=== PATIENT | male | born 1945 | race Caucasian/White ===

== ENCOUNTER 2021-11-25 15:26 | Emergency (ER) | payer BC, MEDICARE ==
[2021-11-25] MEDS ORDERED: Aspirin 81 MG Tab.Chew PO ONE (16:20)
[2021-11-25 16:44] LABS: ESTIMATED GFR 47 mL/min (>60)
== END 2021-11-25 17:05 | disposition home or self-care (01) ==
LOC: FB.ED 15:26
DX: R20.0 Anesthesia of skin (principal); E78.00 Pure hypercholesterolemia, unspecified; I10 Essential (primary) hypertension; I25.2 Old myocardial infarction; E11.9 Type 2 diabetes mellitus without complications; Z87.891 Personal history of nicotine dependence
CPT/HCPCS: 36415; 82565; 99283; 99284; A9270-GY

== ENCOUNTER 2023-04-26 09:47 | Emergency (ER) | payer MEDICARE, OTHER ==
[2023-04-26] MEDS ORDERED: Sodium Chloride 0.9% 10 ML Syringe FLUSH PRN (09:53)
[2023-04-26 10:35] LABS: BASOPHILS PERCENT AUTO 0.5 % (0.3-3.8); EOSINOPHILS ABSOLUTE AUTO 0.1 x10-3/uL (0.0-0.6); EOSINOPHILS PERCENT AUTO 3.2 % (0.1-6.8); HEMATOCRIT 30.8 % (38.3-50.1); HEMOGLOBIN 10.4 g/dL (12.9-17.7); LYMPHOCYTES ABSOLUTE AUTO 0.7 x10-3/uL (0.5-4.5); LYMPHOCYTES PERCENT AUTO 18.2 % (15.8-45.3); MEAN CORPUSCULAR HEMOGLOBIN 35.2 pg (27.0-33.3); MEAN CORPUSCULAR HGB CONC 33.7 g/dL (28.7-35.3); MEAN CORPUSCULAR VOLUME 104.4 fL (80.8-98.7); MEAN PLATELET VOLUME 8.3 fL (6.7-11.0); MONOCYTES ABSOLUTE AUTO 0.2 x10-3/uL (0.0-1.2); MONOCYTES PERCENT AUTO 4.6 % (5.5-15.2); NEUTROPHILS PERCENT AUTO 73.5 % (40.3-71.8); PLATELET COUNT,PLT 145 x10(3)uL (117-477); RED CELL DISTRIBUTION WIDTH 14.6 % (12.4-15.0)
[2023-04-26 10:37] LABS: BLOOD UREA NITROGEN,BUN 18 mg/dL (7-18); BUN/CREATININE RATIO 13.8 (9-20); CALCIUM 8.8 mg/dL (8.6-10.2); CARBON DIOXIDE,CO2 29 mmol/L (21-32); CHLORIDE,CL 106 mmol/L (100-110); CREATININE 1.3 mg/dL (0.70-1.30); ESTIMATED GFR 56 mL/min (>60); GLUCOSE RANDOM 111 mg/dL (80-116); POTASSIUM,K 4.4 mmol/L (3.5-5.3); SODIUM,NA 140 mmol/L (135-145)
[2023-04-26 10:43] LABS: ALANINE AMINOTRANSFERASE,ALT 22 U/L (12-36); ALBUMIN 3.4 g/dL (3.2-4.6); ALKALINE PHOSPHATASE 77 IU/L (56-112); ASPARTATE AMNIOTRANSFERASE,AST 14 IU/L (5-25); BILIRUBIN TOTAL 1.5 mg/dL (0.1-1.3); PROTEIN TOTAL,TP 6.9 g/dL (6.0-8.0)
[2023-04-26 10:44] LABS: INR 1.04 (1.00-1.24); LACTIC ACID 1.2 mmol/L (0.4-2.0); PROTHROMBIN TIME 10.7 sec (9.0-11.1); PTT,PARTIAL THROMBOPLSTIN TIME 28.1 SECONDS (24.4-33.2)
[2023-04-26 10:46] LABS: RED BLOOD CELL COUNT 2.95 x10(6)uL (3.90-5.90)
[2023-04-26 10:49] LABS: TROPONIN I 47.3 pg/mL (4.0-60.3); TSH ULTRASENSITIVE 1.2 IU/mL (0.36-3.74)
[2023-04-26 13:12] LABS: INFLUENZA A NAA NEGATIVE (NEGATIVE); INFLUENZA B NAA NEGATIVE (NEGATIVE); RESPIRATORY SYNCYTIAL VIR NAA NEGATIVE (NEGATIVE)
[2023-04-26 13:13] LABS: CORONAVIRUS COVID-19 NAA NEGATIVE (NEGATIVE)
[2023-04-26 14:41] VITALS: BP 165/83; PULSE 112
== END 2023-04-26 12:30 | disposition home or self-care (01) ==
LOC: FB.ED 09:47
DX: I48.20 Chronic atrial fibrillation, unspecified (principal); D64.9 Anemia, unspecified; F41.1 Generalized anxiety disorder; I50.9 Heart failure, unspecified; I11.0 Hypertensive heart disease with heart failure; E11.9 Type 2 diabetes mellitus without complications; E78.00 Pure hypercholesterolemia, unspecified; Z79.02 Long term (current) use of antithrombotics/antiplatelets; Z79.899 Other long term (current) drug therapy
CPT/HCPCS: 0241U; 36415; 71045; 80053; 83605; 83880; 84443; 84484; 85025; 85610; 85730; 86140; 87040; 93005; 99285; 93010; 99284

== ENCOUNTER 2024-05-16 14:35 | Emergency (ER) | payer MEDICARE, OTHER ==
[2024-05-16] MEDS ORDERED: Sodium Chloride 0.9% 10 ML Syringe FLUSH PRN (15:16)
[2024-05-16] MEDS: Sodium Chloride 0.9% 1,000 ML IV ONE ×2 (15:52→17:43)
[2024-05-16 16:05] LABS: HEMATOCRIT 33.3 % (38.3-50.1); HEMOGLOBIN 11.4 g/dL (12.9-17.7); MEAN CORPUSCULAR HEMOGLOBIN 37.1 pg (27.0-33.3); MEAN CORPUSCULAR HGB CONC 34.3 g/dL (28.7-35.3); MEAN CORPUSCULAR VOLUME 108.3 fL (80.8-98.7); MEAN PLATELET VOLUME 9.8 fL (6.7-11.0); RED BLOOD CELL COUNT 3.08 x10(6)uL (3.90-5.90); RED CELL DISTRIBUTION WIDTH 14.4 % (12.4-15.0)
[2024-05-16 16:29] LABS: A/G RATIO 1.1; ALANINE AMINOTRANSFERASE,ALT 35 U/L (12-36); ALKALINE PHOSPHATASE 64 IU/L (56-112); ASPARTATE AMNIOTRANSFERASE,AST 29 IU/L (5-25); BILIRUBIN TOTAL 1.6 mg/dL (0.1-1.3); CALCIUM 8.8 mg/dL (8.6-10.2); CARBON DIOXIDE,CO2 20 mmol/L (21-32); CHLORIDE,CL 97 mmol/L (100-110); EST CRCL DRUG DOSING (CG) 11.55 mL/min; ESTIMATED GFR 11 mL/min (>60); GLUCOSE RANDOM 128 mg/dL (80-116); POTASSIUM,K 4.5 mmol/L (3.5-5.3); PROTEIN TOTAL,TP 7.6 g/dL (6.0-8.0); SODIUM,NA 134 mmol/L (135-145); WHITE BLOOD CELL COUNT,WBC 1.8 x10-3/uL (3.2-10.1)
[2024-05-16 16:32] LABS: BLOOD UREA NITROGEN,BUN 112 mg/dL (7-18); CREATININE 5.1 mg/dL (0.70-1.30)
[2024-05-16 16:33] LABS: LACTIC ACID 2.4 mmol/L (0.4-2.0)
[2024-05-16 16:42] LABS: C-REACTIVE PROTEIN 5.79 mg/dL (<0.50)
[2024-05-16 17:00] LABS: INFLUENZA A NAA NEGATIVE (NEGATIVE); INFLUENZA B NAA NEGATIVE (NEGATIVE); RESPIRATORY SYNCYTIAL VIR NAA NEGATIVE (NEGATIVE)
[2024-05-16 17:05] LABS: CORONAVIRUS COVID-19 NAA NEGATIVE (NEGATIVE)
[2024-05-16 17:28] LABS: BAND PERCENT MAN 8 % (0-6); LYMPHOCYTES PERCENT MAN 22 % (13-37); MONOCYTES PERCENT MAN 10 % (4-12); PLATELET COUNT,PLT 59 x10(3)uL (117-477); SEG NEUTROPHILS PERCENT MAN 60 % (46-82)
== END 2024-05-16 18:48 ==
LOC: FB.ED 14:35
DX: I11.0 Hypertensive heart disease with heart failure (principal); I50.22 Chronic systolic (congestive) heart failure; D61.818 Other pancytopenia; N17.9 Acute kidney failure, unspecified; I25.2 Old myocardial infarction; E78.00 Pure hypercholesterolemia, unspecified; E11.9 Type 2 diabetes mellitus without complications; Z87.891 Personal history of nicotine dependence; Z90.89 Acquired absence of other organs; Z79.51 Long term (current) use of inhaled steroids; Z79.899 Other long term (current) drug therapy
CPT/HCPCS: 0241U; 71046; 80053; 83605; 83880; 85025; 86140; 93005; 96360; 96361; 99285; J7030

== ENCOUNTER 2024-05-27 08:06 | Inpatient (IN) | payer MEDICARE, OTHER ==
[2024-05-27] MEDS ORDERED: Ampicillin 2 GM Vial IV SCH (15:15)
[2024-05-27] MEDS ORDERED: Acetaminophen 325 MG Tab PO PRN (15:29)
[2024-05-27] MEDS ORDERED: Melatonin 3 MG Tab PO PRN (15:29)
[2024-05-27] MEDS ORDERED: Polyethylene Glycol 3350 Powder 17 GM Packet PO PRN (15:29)
[2024-05-27] MEDS: Ampicillin 2 GM in Sodium Chloride 0.9% 100 ML IV SCH (16:18)
[2024-05-27] MEDS: Sodium Chloride 0.9% 10 ML Syringe FLUSH PRN (16:19)
[2024-05-27] MEDS: Albuterol/Ipratropium 3.0-0.5 MG/3 ML Neb Soln INH SCH (22:11)
[2024-05-27] MEDS: cefTRIAXone 2 GM Vial IVPUSH SCH (22:35)
[2024-05-28 06:42] LABS: HEMATOCRIT 25.6 % (38.3-50.1); HEMOGLOBIN 8.6 g/dL (12.9-17.7); MEAN CORPUSCULAR HGB CONC 33.5 g/dL (28.7-35.3); MEAN CORPUSCULAR VOLUME 107.3 fL (80.8-98.7); MEAN PLATELET VOLUME 9.3 fL (6.7-11.0); PLATELET COUNT,PLT 101 x10(3)uL (117-477); RED BLOOD CELL COUNT 2.38 x10(6)uL (3.90-5.90); RED CELL DISTRIBUTION WIDTH 14.8 % (12.4-15.0); WHITE BLOOD CELL COUNT,WBC 2.4 x10-3/uL (3.2-10.1)
[2024-05-28 06:51] LABS: BLOOD UREA NITROGEN,BUN 14 mg/dL (7-18); CALCIUM 8.3 mg/dL (8.6-10.2); CARBON DIOXIDE,CO2 28 mmol/L (21-32); CHLORIDE,CL 107 mmol/L (100-110); CREATININE 1.4 mg/dL (0.70-1.30); EST CRCL DRUG DOSING (CG) 42.77 mL/min; ESTIMATED GFR 51 mL/min (>60); GLUCOSE RANDOM 95 mg/dL (80-116); POTASSIUM,K 3.6 mmol/L (3.5-5.3); SODIUM,NA 145 mmol/L (135-145)
[2024-05-28 07:03] LABS: BAND PERCENT MAN 5 % (0-6); BASOPHILS PERCENT MAN 1 % (0-2); EOSINOPHILS PERCENT MAN 1 % (0-5); LYMPHOCYTES PERCENT MAN 30 % (13-37); MONOCYTES PERCENT MAN 6 % (4-12); SEG NEUTROPHILS PERCENT MAN 57 % (46-82)
[2024-05-28] MEDS: Furosemide 40 MG Tab PO SCH (08:19)
[2024-05-28] MEDS: Spironolactone 25 MG Tab PO SCH (08:19)
[2024-05-28] MEDS: Metoprolol Succinate 50 MG Tab.ER PO SCH (08:20)
[2024-05-28] MEDS: Rosuvastatin 20 MG Tab PO SCH (08:20)
[2024-05-28] MEDS: Clopidogrel 75 MG Tab PO SCH (08:20)
[2024-05-28] MEDS: Cyanocobalamin (Vitamin B12) 1,000 MCG Tab PO SCH (08:20)
[2024-05-28] MEDS: Lisinopril 5 MG Tab PO SCH (08:20)
[2024-05-29] MEDS: Albuterol 6.7 GM Inhaler INH PRN (00:41)
[2024-05-31] MEDS ORDERED: FLU (Fluad Triv) TS24-25 (65UP)/MF59C/PF 45 MCG/0.5 ML Syringe IM ONE (10:00)
[2024-06-04 06:28] LABS: HEMATOCRIT 23.1 % (38.3-50.1); HEMOGLOBIN 7.6 g/dL (12.9-17.7); MEAN CORPUSCULAR HEMOGLOBIN 35.4 pg (27.0-33.3); MEAN CORPUSCULAR HGB CONC 33.1 g/dL (28.7-35.3); MEAN PLATELET VOLUME 9.1 fL (6.7-11.0); PLATELET COUNT,PLT 94 x10(3)uL (117-477); RED BLOOD CELL COUNT 2.16 x10(6)uL (3.90-5.90); RED CELL DISTRIBUTION WIDTH 15.1 % (12.4-15.0)
[2024-06-04 06:33] LABS: WHITE BLOOD CELL COUNT,WBC 1.4 x10-3/uL (3.2-10.1)
[2024-06-04 06:38] LABS: A/G RATIO 0.9; ALANINE AMINOTRANSFERASE,ALT 24 U/L (12-36); ALBUMIN 2.7 g/dL (3.2-4.6); ALKALINE PHOSPHATASE 83 IU/L (56-112); ASPARTATE AMNIOTRANSFERASE,AST 18 IU/L (5-25); BILIRUBIN TOTAL 0.7 mg/dL (0.1-1.3); BLOOD UREA NITROGEN,BUN 14 mg/dL (7-18); BUN/CREATININE RATIO 9.3 (9-20); CALCIUM 8.7 mg/dL (8.6-10.2); CARBON DIOXIDE,CO2 33 mmol/L (21-32); CHLORIDE,CL 105 mmol/L (100-110); CREATININE 1.5 mg/dL (0.70-1.30); EST CRCL DRUG DOSING (CG) 39.92 mL/min; ESTIMATED GFR 47 mL/min (>60); GLUCOSE RANDOM 90 mg/dL (80-116); POTASSIUM,K 4.3 mmol/L (3.5-5.3); PROTEIN TOTAL,TP 5.7 g/dL (6.0-8.0); SODIUM,NA 143 mmol/L (135-145)
[2024-06-04 06:56] LABS: EOSINOPHILS PERCENT MAN 10 % (0-5); LYMPHOCYTES PERCENT MAN 47 % (13-37); MONOCYTES PERCENT MAN 5 % (4-12); SEG NEUTROPHILS PERCENT MAN 38 % (46-82)
[2024-06-04 13:15] LABS: HEMATOCRIT 25.8 % (38.3-50.1); HEMOGLOBIN 8.6 g/dL (12.9-17.7); MEAN CORPUSCULAR HEMOGLOBIN 35.8 pg (27.0-33.3); MEAN CORPUSCULAR HGB CONC 33.3 g/dL (28.7-35.3); MEAN CORPUSCULAR VOLUME 107.6 fL (80.8-98.7); MEAN PLATELET VOLUME 8.8 fL (6.7-11.0); PLATELET COUNT,PLT 106 x10(3)uL (117-477); RED CELL DISTRIBUTION WIDTH 15.2 % (12.4-15.0)
[2024-06-04 13:16] LABS: WHITE BLOOD CELL COUNT,WBC 1.4 x10-3/uL (3.2-10.1)
[2024-06-04 13:27] LABS: EOSINOPHILS PERCENT MAN 7 % (0-5); LYMPHOCYTES PERCENT MAN 45 % (13-37); MONOCYTES PERCENT MAN 6 % (4-12); SEG NEUTROPHILS PERCENT MAN 42 % (46-82)
[2024-06-06 06:19] LABS: HEMATOCRIT 23.2 % (38.3-50.1); HEMOGLOBIN 7.7 g/dL (12.9-17.7); MEAN CORPUSCULAR HEMOGLOBIN 35.7 pg (27.0-33.3); MEAN CORPUSCULAR HGB CONC 33.1 g/dL (28.7-35.3); MEAN PLATELET VOLUME 8.7 fL (6.7-11.0); PLATELET COUNT,PLT 105 x10(3)uL (117-477); RED BLOOD CELL COUNT 2.15 x10(6)uL (3.90-5.90); RED CELL DISTRIBUTION WIDTH 15.1 % (12.4-15.0)
[2024-06-06 06:46] LABS: WHITE BLOOD CELL COUNT,WBC 1.4 x10-3/uL (3.2-10.1)
[2024-06-06 07:59] LABS: EOSINOPHILS PERCENT MAN 2 % (0-5); LYMPHOCYTES PERCENT MAN 47 % (13-37); MONOCYTES PERCENT MAN 10 % (4-12); SEG NEUTROPHILS PERCENT MAN 41 % (46-82)
[2024-06-06 08:00] LABS: ANISOCYTOSIS FEW
[2024-06-08 06:50] LABS: HEMATOCRIT 25.3 % (38.3-50.1); HEMOGLOBIN 8.4 g/dL (12.9-17.7); MEAN CORPUSCULAR HEMOGLOBIN 36.1 pg (27.0-33.3); MEAN CORPUSCULAR HGB CONC 33.4 g/dL (28.7-35.3); MEAN PLATELET VOLUME 8.5 fL (6.7-11.0); PLATELET COUNT,PLT 129 x10(3)uL (117-477); RED BLOOD CELL COUNT 2.34 x10(6)uL (3.90-5.90); RED CELL DISTRIBUTION WIDTH 15.3 % (12.4-15.0)
[2024-06-08 07:02] LABS: WHITE BLOOD CELL COUNT,WBC 1.6 x10-3/uL (3.2-10.1)
[2024-06-08 07:41] LABS: BAND PERCENT MAN 2 % (0-6); EOSINOPHILS PERCENT MAN 6 % (0-5); LYMPHOCYTES PERCENT MAN 44 % (13-37); MONOCYTES PERCENT MAN 6 % (4-12); SEG NEUTROPHILS PERCENT MAN 42 % (46-82)
[2024-06-08 07:43] LABS: ANISOCYTOSIS FEW
[2024-06-08 07:44] LABS: OVALOCYTES FEW
[2024-06-08 07:45] LABS: POIKILOCYTOSIS FEW
[2024-06-10 06:43] LABS: HEMATOCRIT 25.8 % (38.3-50.1); HEMOGLOBIN 8.6 g/dL (12.9-17.7); MEAN CORPUSCULAR HEMOGLOBIN 36.3 pg (27.0-33.3); MEAN CORPUSCULAR HGB CONC 33.3 g/dL (28.7-35.3); MEAN PLATELET VOLUME 8.3 fL (6.7-11.0); PLATELET COUNT,PLT 147 x10(3)uL (117-477); RED BLOOD CELL COUNT 2.36 x10(6)uL (3.90-5.90); RED CELL DISTRIBUTION WIDTH 15.5 % (12.4-15.0)
[2024-06-10 06:54] LABS: WHITE BLOOD CELL COUNT,WBC 1.7 x10-3/uL (3.2-10.1)
[2024-06-10 07:09] LABS: ANISOCYTOSIS FEW; BAND PERCENT MAN 4 % (0-6); EOSINOPHILS PERCENT MAN 9 % (0-5); LYMPHOCYTES PERCENT MAN 34 % (13-37); MONOCYTES PERCENT MAN 8 % (4-12); OVALOCYTES FEW; POIKILOCYTOSIS FEW; SEG NEUTROPHILS PERCENT MAN 45 % (46-82)
[2024-06-10] MEDS: Saccharomyces Boulardii (Probiotic) 250 MG Cap PO SCH (10:00)
[2024-06-12 06:24] LABS: HEMATOCRIT 23.1 % (38.3-50.1); HEMOGLOBIN 7.8 g/dL (12.9-17.7); MEAN CORPUSCULAR HEMOGLOBIN 36.9 pg (27.0-33.3); MEAN CORPUSCULAR HGB CONC 33.7 g/dL (28.7-35.3); MEAN CORPUSCULAR VOLUME 109.7 fL (80.8-98.7); MEAN PLATELET VOLUME 8.1 fL (6.7-11.0); PLATELET COUNT,PLT 126 x10(3)uL (117-477); RED BLOOD CELL COUNT 2.11 x10(6)uL (3.90-5.90); RED CELL DISTRIBUTION WIDTH 14.8 % (12.4-15.0)
[2024-06-12 06:29] LABS: WHITE BLOOD CELL COUNT,WBC 1.8 x10-3/uL (3.2-10.1)
[2024-06-12 06:34] LABS: CREATININE 1.5 mg/dL (0.70-1.30); EST CRCL DRUG DOSING (CG) 39.92 mL/min
[2024-06-12 07:30] LABS: EOSINOPHILS PERCENT MAN 10 % (0-5); LYMPHOCYTES PERCENT MAN 42 % (13-37); MONOCYTES PERCENT MAN 12 % (4-12); SEG NEUTROPHILS PERCENT MAN 36 % (46-82)
[2024-06-12 07:46] LABS: TEARDROP CELLS FEW
[2024-06-12 07:47] LABS: POIKILOCYTOSIS FEW
[2024-06-12 07:48] LABS: ANISOCYTOSIS MODERATE
[2024-06-15 07:04] LABS: HEMATOCRIT 24.8 % (38.3-50.1); HEMOGLOBIN 8.2 g/dL (12.9-17.7); MEAN CORPUSCULAR HEMOGLOBIN 36.4 pg (27.0-33.3); MEAN CORPUSCULAR HGB CONC 32.9 g/dL (28.7-35.3); MEAN CORPUSCULAR VOLUME 110.6 fL (80.8-98.7); MEAN PLATELET VOLUME 8.1 fL (6.7-11.0); PLATELET COUNT,PLT 134 x10(3)uL (117-477); RED BLOOD CELL COUNT 2.24 x10(6)uL (3.90-5.90); RED CELL DISTRIBUTION WIDTH 14.7 % (12.4-15.0)
[2024-06-15 07:19] LABS: WHITE BLOOD CELL COUNT,WBC 1.8 x10-3/uL (3.2-10.1)
[2024-06-15 07:35] LABS: EOSINOPHILS PERCENT MAN 6 % (0-5); LYMPHOCYTES PERCENT MAN 38 % (13-37); MONOCYTES PERCENT MAN 4 % (4-12); SEG NEUTROPHILS PERCENT MAN 52 % (46-82)
[2024-06-15 07:41] LABS: ANISOCYTOSIS FEW; OVALOCYTES FEW; POIKILOCYTOSIS FEW
[2024-06-17] MEDS ORDERED: Carboxymethylcellulose Sodium 0.5% Ophth Soln 15 ML Bottle EYEBOTH PRN (08:53)
[2024-06-19 06:41] LABS: HEMATOCRIT 28.4 % (38.3-50.1); HEMOGLOBIN 8.5 g/dL (12.9-17.7); MEAN CORPUSCULAR HEMOGLOBIN 32.8 pg (27.0-33.3); MEAN CORPUSCULAR HGB CONC 29.9 g/dL (28.7-35.3); MEAN CORPUSCULAR VOLUME 109.5 fL (80.8-98.7); MEAN PLATELET VOLUME 8.2 fL (6.7-11.0); PLATELET COUNT,PLT 134 x10(3)uL (117-477); RED BLOOD CELL COUNT 2.59 x10(6)uL (3.90-5.90); RED CELL DISTRIBUTION WIDTH 14.7 % (12.4-15.0); WHITE BLOOD CELL COUNT,WBC 2.2 x10-3/uL (3.2-10.1)
[2024-06-19 06:55] LABS: CREATININE 1.5 mg/dL (0.70-1.30); EST CRCL DRUG DOSING (CG) 39.92 mL/min
[2024-06-19 07:42] LABS: EOSINOPHILS PERCENT MAN 8 % (0-5); LYMPHOCYTES PERCENT MAN 34 % (13-37); MONOCYTES PERCENT MAN 10 % (4-12); POIKILOCYTOSIS FEW; SEG NEUTROPHILS PERCENT MAN 48 % (46-82)
[2024-06-19 07:43] LABS: OVALOCYTES FEW
[2024-06-24 06:35] LABS: HEMATOCRIT 26.8 % (38.3-50.1); MEAN CORPUSCULAR HEMOGLOBIN 35.9 pg (27.0-33.3); MEAN CORPUSCULAR HGB CONC 33.5 g/dL (28.7-35.3); MEAN CORPUSCULAR VOLUME 107.3 fL (80.8-98.7); MEAN PLATELET VOLUME 8.4 fL (6.7-11.0); PLATELET COUNT,PLT 100 x10(3)uL (117-477); RED BLOOD CELL COUNT 2.49 x10(6)uL (3.90-5.90); RED CELL DISTRIBUTION WIDTH 15.7 % (12.4-15.0)
[2024-06-24 06:41] LABS: WHITE BLOOD CELL COUNT,WBC 1.9 x10-3/uL (3.2-10.1)
[2024-06-24 06:54] LABS: EOSINOPHILS PERCENT MAN 7 % (0-5); LYMPHOCYTES PERCENT MAN 37 % (13-37); MONOCYTES PERCENT MAN 10 % (4-12); SEG NEUTROPHILS PERCENT MAN 44 % (46-82)
[2024-06-24 06:55] LABS: BASOPHILS PERCENT MAN 2 % (0-2); OVALOCYTES FEW; POIKILOCYTOSIS FEW
[2024-06-26 06:47] LABS: HEMATOCRIT 26.2 % (38.3-50.1); HEMOGLOBIN 8.8 g/dL (12.9-17.7); MEAN CORPUSCULAR HEMOGLOBIN 35.8 pg (27.0-33.3); MEAN CORPUSCULAR HGB CONC 33.7 g/dL (28.7-35.3); MEAN CORPUSCULAR VOLUME 106.4 fL (80.8-98.7); MEAN PLATELET VOLUME 8.8 fL (6.7-11.0); PLATELET COUNT,PLT 102 x10(3)uL (117-477); RED BLOOD CELL COUNT 2.47 x10(6)uL (3.90-5.90); RED CELL DISTRIBUTION WIDTH 15.2 % (12.4-15.0)
[2024-06-26 06:52] LABS: EST CRCL DRUG DOSING (CG) 39.92 mL/min
[2024-06-26 07:25] LABS: EOSINOPHILS PERCENT MAN 9 % (0-5); LYMPHOCYTES PERCENT MAN 29 % (13-37); MONOCYTES PERCENT MAN 10 % (4-12); POIKILOCYTOSIS FEW; SEG NEUTROPHILS PERCENT MAN 52 % (46-82)
[2024-06-26 07:35] LABS: CREATININE 1.5 mg/dL (0.70-1.30)
[2024-06-29] MEDS: FLU (Fluad Triv) TS24-25 (65UP)/MF59C/PF 45 MCG/0.5 ML Syringe IM ONE (11:20)
== END 2024-06-29 16:05 | disposition home or self-care (01) | DRG 289 ==
LOC: FB.MS 13:54
PROVIDERS: ADMIT Family Medicine; ATTEND Family Medicine
DX: I33.0 Acute and subacute infective endocarditis (principal); D61.818 Other pancytopenia; I13.0 Hypertensive heart and chronic kidney disease with heart failure and stage 1 through stage 4 chronic kidney disease, or unspecified chronic kidney disease; I50.32 Chronic diastolic (congestive) heart failure; I48.20 Chronic atrial fibrillation, unspecified; R78.81 Bacteremia; J96.11 Chronic respiratory failure with hypoxia; I25.5 Ischemic cardiomyopathy; J44.9 Chronic obstructive pulmonary disease, unspecified; N18.31 Chronic kidney disease, stage 3a; I25.10 Atherosclerotic heart disease of native coronary artery without angina pectoris; M19.90 Unspecified osteoarthritis, unspecified site; E78.00 Pure hypercholesterolemia, unspecified; F41.9 Anxiety disorder, unspecified; F32.A Depression, unspecified; E11.22 Type 2 diabetes mellitus with diabetic chronic kidney disease; A49.8 Other bacterial infections of unspecified site; Z97.8 Presence of other specified devices; Z95.0 Presence of cardiac pacemaker; Z95.2 Presence of prosthetic heart valve; Z79.51 Long term (current) use of inhaled steroids; Z79.899 Other long term (current) drug therapy; Z79.2 Long term (current) use of antibiotics; I25.2 Old myocardial infarction; Z90.89 Acquired absence of other organs; Z95.5 Presence of coronary angioplasty implant and graft; Z98.890 Other specified postprocedural states; Z86.73 Personal history of transient ischemic attack (TIA), and cerebral infarction without residual deficits
CPT/HCPCS: 36415; 80048; 80053; 82565; 84460; 85025; 90653; 94640; A9270-GY; G0008; J0290; J0696; J1642; J3490; J7620